=== PATIENT | female | born 1965 | race Caucasian/White ===

== ENCOUNTER 2021-02-21 13:47 | Emergency (ER) | payer OTHER ==
--- NOTE | 2021-02-21 14:59 | EDM.PDOC ---
ED HPI GENERAL MEDICAL PROBLEM - General Chief Complaint: Lower Extremity Injury/Pain Stated Complaint: FELL AND R KNEE INJURY Time Seen by Provider: 02/21/21 14:45 Source of Information: Reports: Patient History Limitations: Reports: No Limitations - History of Present Illness INITIAL COMMENTS - FREE TEXT/NARRATIVE: 55 yo female slipped on the ice and fell yesterday with injury to the R knee. Has been able to walk on it. Has taken nothing for pain. Loosens up with walking, then tightens up after a period of rest. Onset: Sudden Onset Date: 02/20/21 Duration: Day(s): (1), Waxing/Waning Location: Reports: Lower Extremity, Right Quality: Reports: Sharp Severity: Moderate Improves with: Reports: Rest Worsens with: Reports: Movement Context: Reports: Trauma Associated Symptoms: Reports: No Other Symptoms Treatments [employer]: Reports: Other (see below) (none) Right Knee Pain Score (Numeric/FACES): 8 - Related Data Allergies Allergy/AdvReac Type Severity Reaction Status Date / Time No Known Allergies Allergy Verified 02/21/21 14:33 Home Meds: Home Meds FLUoxetine HCl [Fluoxetine HCl] 80 mg PO DAILY 02/21/21 [History] Flecainide [Tambocor] 50 mg PO Q12H 02/21/21 [History] Losartan [Cozaar] 75 mg PO DAILY 02/21/21 [History] Rosuvastatin [Crestor] 5 mg PO BEDTIME 02/21/21 [History] buPROPion [buPROPion XL] 150 mg PO DAILY 02/21/21 [History] hydroCHLOROthiazide [Hydrochlorothiazide] 25 mg PO DAILY 02/21/21 [History] metFORMIN [Glucophage XR] 15,000 mg PO DAILY 02/21/21 [History] Past Medical History HEENT History: Reports: None Cardiovascular History: Reports: High Cholesterol, Hypertension Other Cardiovascular History: [place] Respiratory History: Reports: Sleep Apnea Other Respiratory History: c-pap Gastrointestinal History: Reports: None Genitourinary History: Reports: None [employer] History: Reports: Musculoskeletal History: Reports: Fracture, Fibromyalgia Neurological History: Reports: None Psychiatric History: Reports: Anxiety, Depression Endocrine/Metabolic History: Reports: Diabetes, Type II Hematologic History: Reports: None Immunologic History: Reports: None Oncologic (Cancer) History: Reports: None Dermatologic History: Reports: None - Infectious Disease History Infectious Disease History: Reports: Other (See Below) Other Infectious Disease History: unknown - Past Surgical History HEENT Surgical History: Reports: None Cardiovascular Surgical History: Reports: None GI Surgical History: Reports: Colonoscopy Female Surgical History: Reports: Section, Hysterectomy, Salpingo- Oophorectomy, Tubal Ligation Other Female Surgeries/Procedures: left right ovary Musculoskeletal Surgical History: Reports: Other (See Below) Other Musculoskeletal Surgeries/Procedures:: ankle surgery Social & Family History - Tobacco Use Tobacco Use Status *Q: Never Tobacco User - Recreational Drug Use Recreational Drug Use: No Review of Systems - Review of Systems Review Of Systems: See Below Constitutional: Reports: No Symptoms Musculoskeletal: Reports: Joint Pain (R knee) Skin: Reports: No Symptoms Neurological: Reports: No Symptoms ED EXAM, GENERAL - Physical Exam Exam: See Below Exam Limited By: No Limitations General Appearance: Alert, WD/WN, No Apparent Distress, Obese Extremities: Normal Inspection, No Pedal Edema, Limited Range of Motion (due to pain), Other (pain maximal with stressing of the R MCL, no apparent laxity). No: Normal Range of Motion, Non-Tender, Joint Swelling, Andrey's Sign, Redness Neurological: Alert, Oriented, CN II-XII Intact, Normal Cognition, No Motor/Sensory Deficits Psychiatric: Normal Affect, Normal Mood Skin Exam: Warm, Dry, Intact, Normal Color, No Rash Course - Vital Signs Last Recorded V/S: Last Vital Signs Temp 36.4 C 02/21/21 14:30 Pulse 92 02/21/21 14:30 Resp 16 02/21/21 14:30 BP 147/79 H 02/21/21 14:30 Pulse Ox 97 02/21/21 14:30 - Radiology Interpretation Free Text/Narrative:: R knee X-ray-neg Departure - Departure Time of Disposition: 15:35 Disposition: Home, Self-Care 01 Condition: Fair Clinical Impression: MCL sprain of right knee Qualifiers: Encounter type: initial encounter Qualified Code(s): S83.411A - Sprain of medial collateral ligament of right knee, initial encounter - Discharge Information *PRESCRIPTION DRUG MONITORING PROGRAM REVIEWED*: Not Applicable *COPY OF PRESCRIPTION DRUG MONITORING REPORT IN PATIENT NIC: Not Applicable Instructions: Medial Collateral Knee Ligament Sprain Referrals: PCP,None [Primary Care Provider] - Forms: ED Department Discharge Additional Instructions: Acetaminophen and/or ibuprofen for pain relief. Ice the area a couple times/day. Use the knee brace for added support. Rest. Recheck with your provider if not better in a week. Sepsis Event Note (ED) - Evaluation Sepsis Screening Result: No Definite Risk - Focused Exam Vital Signs: Vital Signs Temp Pulse Resp BP Pulse Ox 02/21/21 14:30 36.4 C 92 16 147/79 H 97
--- NOTE | 2021-02-21 15:27 | CR ---
Knee 3V Rt CLINICAL HISTORY: Fall FINDINGS: No acute fracture or dislocation is noted. There are no osseous lesions. There is moderate joint space narrowing medial compartment. There is patellar spurring. Impression: No fracture Osteoarthritis
== END 2021-02-21 16:03 | disposition home or self-care (01) ==
LOC: EDBD 13:47 → JP.ED 13:47
DX: S83.411A Sprain of medial collateral ligament of right knee, initial encounter (principal); E78.00 Pure hypercholesterolemia, unspecified; I10 Essential (primary) hypertension; E11.9 Type 2 diabetes mellitus without complications; Z79.899 Other long term (current) drug therapy; Z79.84 Long term (current) use of oral hypoglycemic drugs; W00.0XXA Fall on same level due to ice and snow, initial encounter
CPT/HCPCS: 73562-26-RT; 73562-RT; 99283